=== PATIENT | female | born 1990 | race Caucasian/White ===

== ENCOUNTER 2022-07-26 13:52 | Outpatient (CLI) | payer OTHER, SELFPAY ==
[2022-07-27 00:09] LABS: Strep A DNA Probe* DETECTED (Not Detectd)
== END 2022-07-26 13:53 | disposition home or self-care (01) ==
LOC: KYNREF 13:52
PROVIDERS: PCP Nurse Practitioner Family; Visit Provider Nurse Practitioner Family
DX: J02.9 Acute pharyngitis, unspecified (principal)
CPT/HCPCS: 87651

== ENCOUNTER 2023-12-21 18:13 | Outpatient (CLI) | payer OTHER, SELFPAY | END 2023-12-21 18:14 | disposition home or self-care (01) | LOC: NFLDREF 12-25 17:36 | PROVIDERS: PCP Nurse Practitioner Family; Referring Provider Nurse Practitioner Family; Visit Provider Nurse Practitioner Family | DX: N30.00 Acute cystitis without hematuria (principal); U07.1 COVID-19 | CPT/HCPCS: 87086; 87186 ==

== ENCOUNTER 2024-06-28 15:12 | Outpatient (CLI) | payer BC, SELFPAY | END 2024-06-28 15:13 | disposition home or self-care (01) | PROVIDERS: PCP Nurse Practitioner Family; Visit Provider Nurse Practitioner Family | DX: R23.3 Spontaneous ecchymoses (principal) | CPT/HCPCS: 80076; 85025 ==